=== PATIENT | female | born 1945 | race Caucasian/White ===

== ENCOUNTER → 2016-07-11 | Outpatient (CLI) | payer OTHER ==
[~2016-07-11] MED LIST: ASPI81TA28 PO; DENO60SO SQ; ESCI10TA17 PO; ESTR10TA VAGRING; EZET10TA47 PO; FLUT0.0529 INH; LEVO50TA6 PO; LORA1TAB13 PO; MULT-506 PO; SIMV-150 PO
[2016-07-11 12:33] LABS: ALT/SGPT 24 U/L (12-78); AST/SGOT 16 U/L (15-37); BLOOD UREA NITROGEN 25 mg/dl (7-18); BUN/CREATININE RATIO 29.9 (10-20); CALCIUM 9.2 mg/dl (8.5-10.1); CARBON DIOXIDE 28 mmol/L (21-32); CHLORIDE 108 mmol/L (98-107); CREATININE 0.83 mg/dl (0.60-1.20); GLUCOSE 93 mg/dl (70-99); SODIUM 144 mmol/L (136-145)
[2016-07-11 12:47] LABS: ALB/GLOB RATIO 1.2 (0.9-2); ALKALINE PHOSPHATASE 34 U/L (45-117); CHOLESTEROL 213 mg/dl (0-200); CHOLESTEROL/HDL RATIO 3.1; HDL CHOLESTEROL 68 mg/dl; LDL CHOLESTEROL CALCULATED 125 mg/dl; TRIGLYCERIDES 99 mg/dl (0-150); VERY LOW DENSITY LIPOPROT CALC 20 mg/dl
== END | disposition home or self-care (01) ==
LOC: C.LABPVFM 07:35
PROVIDERS: ATTEND Family Medicine
DX: E78.00 Pure hypercholesterolemia, unspecified (principal); E03.9 Hypothyroidism, unspecified; Z51.81 Encounter for therapeutic drug level monitoring; Z79.899 Other long term (current) drug therapy; Z11.59 Encounter for screening for other viral diseases

== ENCOUNTER → 2016-08-25 | Outpatient (CLI) | payer OTHER ==
[2016-08-25 13:16] LABS: CREATININE 0.89 mg/dl (0.60-1.20)
[2016-08-26 17:05] LABS: ALBUMIN 4.2 G/DL (3.8-4.8); GAMMA GLOBULIN 0.7 G/DL (0.8-1.7); TOTAL PROTEIN 6.6 G/DL (6.2-8.3)
== END | disposition home or self-care (01) ==
LOC: C.LABPVFM 07:52
PROVIDERS: ATTEND Family Medicine
DX: M81.0 Age-related osteoporosis without current pathological fracture (principal); E61.8 Deficiency of other specified nutrient elements; E55.9 Vitamin D deficiency, unspecified

== ENCOUNTER → 2016-09-02 | Outpatient (CLI) | payer OTHER | END | disposition home or self-care (01) | LOC: C.LABPVFM 14:06 | PROVIDERS: ATTEND Internal Medicine Rheumatology | DX: M81.0 Age-related osteoporosis without current pathological fracture (principal); E61.8 Deficiency of other specified nutrient elements; E55.9 Vitamin D deficiency, unspecified ==

== ENCOUNTER → 2016-09-08 | Outpatient (CLI) | payer OTHER ==
--- NOTE | 2016-09-08 13:18 | MAMMOGRAPHY REPORT ---
BILATERAL DIGITAL SCREENING MAMMOGRAM WITH CAD: 09/08/2016 CLINICAL HISTORY: Routine screening. Patient has no complaints. TECHNIQUE: Bilateral CC and MLO views were obtained. Current study was also evaluated with a Comput er Aided Detection (CAD) system. COMPARISON: Comparison is made to exams dated: 09/05/2015 mammogram, 08/30/2014 mammogram, 08/29/2013 mammogram, 03/03/2013 mammogram, 09/01/2012 ultrasound, and 09/01/2012 mammogram - [facility]. BREAST COMPOSITION: There are scattered areas of fibroglandular density in both breasts. FINDINGS: There is stable nodular asymmetry in the medial right breast. No new suspicious mass, arc hitectural distortion or cluster of microcalcifications is seen. IMPRESSION: ACR BI-RADS CATEGORY 1: NEGATIVE There is no mammographic evidence of malignancy. A 1 year screening mammogram is recommended. The p atient will receive written notification of the results. Approximately 10% of breast cancers are not detected with mammography. A negative mammographic repor t should not delay biopsy if a clinically suggestive mass is present. Meliza Hankins M.D. ay/:09/08/2016 12:46:27 [employer] Math Teacher: Dolores DUNAWAY)([place]), [facility] letter sent: Normal 1/2 BI-RADS Code: ACR BI-RADS Category 1: Negative
== END | disposition home or self-care (01) ==
LOC: C.MAMM 08:38
PROVIDERS: ATTEND Obstetrics & Gynecology
DX: Z12.31 Encounter for screening mammogram for malignant neoplasm of breast (principal)

== ENCOUNTER → 2016-10-16 | Outpatient (CLI) | payer OTHER | END | disposition home or self-care (01) | LOC: C.MAMM 08:09 | PROVIDERS: ATTEND Internal Medicine Rheumatology | DX: M81.0 Age-related osteoporosis without current pathological fracture (principal); E61.8 Deficiency of other specified nutrient elements; E55.9 Vitamin D deficiency, unspecified ==

== ENCOUNTER → 2016-12-10 | Outpatient (CLI) | payer OTHER | END | disposition home or self-care (01) | LOC: C.PAPS 10:58 | PROVIDERS: ATTEND Obstetrics & Gynecology | DX: Z12.4 Encounter for screening for malignant neoplasm of cervix (principal) ==

== ENCOUNTER → 2017-01-16 | Outpatient (CLI) | payer OTHER ==
[2017-01-16 13:02] LABS: ALT/SGPT 25 U/L (12-78); BLOOD UREA NITROGEN 20 mg/dl (7-18); BUN/CREATININE RATIO 23.3 (10-20); CALCIUM 9.4 mg/dl (8.5-10.1); CARBON DIOXIDE 29 mmol/L (21-32); CHLORIDE 106 mmol/L (98-107); CHOLESTEROL 209 mg/dl (0-200); CREATININE 0.86 mg/dl (0.60-1.20); GLUCOSE 87 mg/dl (70-99); POTASSIUM 3.9 mmol/L (3.5-5.1); SODIUM 141 mmol/L (136-145); TRIGLYCERIDES 77 mg/dl (0-150); VERY LOW DENSITY LIPOPROT CALC 15 mg/dl
[2017-01-16 13:12] LABS: ALB/GLOB RATIO 1.2 (0.9-2); ALKALINE PHOSPHATASE 36 U/L (45-117); AST/SGOT 22 U/L (15-37); CHOLESTEROL/HDL RATIO 2.8; HDL CHOLESTEROL 76 mg/dl; LDL CHOLESTEROL CALCULATED 118 mg/dl; THYROID STIMULATING HORMONE 0.935 uIu/ml (0.300-4.500)
== END | disposition home or self-care (01) ==
LOC: C.LABPVFM 07:37
PROVIDERS: ATTEND Family Medicine
DX: E78.00 Pure hypercholesterolemia, unspecified (principal); M81.0 Age-related osteoporosis without current pathological fracture; E03.9 Hypothyroidism, unspecified

== ENCOUNTER → 2017-04-13 | Outpatient (CLI) | payer OTHER | END | disposition home or self-care (01) | LOC: C.LABPVFM 07:47 | PROVIDERS: ATTEND Internal Medicine Rheumatology | DX: M81.0 Age-related osteoporosis without current pathological fracture (principal); E55.9 Vitamin D deficiency, unspecified ==

== ENCOUNTER → 2017-07-22 | Outpatient (CLI) | payer OTHER ==
[2017-07-22 13:20] LABS: ALBUMIN 3.9 gm/dl (3.4-5.0); ALT/SGPT 29 U/L (12-78); BLOOD UREA NITROGEN 28 mg/dl (7-18); CALCIUM 9.6 mg/dl (8.5-10.1); CARBON DIOXIDE 28 mmol/L (21-32); CHOLESTEROL 226 mg/dl (0-200); CREATININE 0.84 mg/dl (0.60-1.20); GLUCOSE 104 mg/dl (70-99); POTASSIUM 3.9 mmol/L (3.5-5.1); SODIUM 139 mmol/L (136-145)
[2017-07-22 13:30] LABS: ALKALINE PHOSPHATASE 35 U/L (45-117); AST/SGOT 21 U/L (15-37); LDL CHOLESTEROL CALCULATED 143 mg/dl; TOTAL PROTEIN 7.3 gm/dl (6.4-8.2)
== END | disposition home or self-care (01) ==
LOC: C.LABPVFM 07:25
PROVIDERS: ATTEND Family Medicine
DX: E78.00 Pure hypercholesterolemia, unspecified (principal); F41.9 Anxiety disorder, unspecified; E03.9 Hypothyroidism, unspecified

== ENCOUNTER → 2017-09-11 | Outpatient (CLI) | payer OTHER ==
--- NOTE | 2017-09-14 07:47 | MAMMOGRAPHY REPORT ---
BILATERAL DIGITAL SCREENING MAMMOGRAM TOMOSYNTHESIS WITH CAD: 09/11/2017 CLINICAL HISTORY: Routine screening. Patient has no complaints. TECHNIQUE: Breast tomosynthesis in addition to standard 2D mammography was performed. Current study was also evaluated with a Computer Aided Detection (CAD) system. COMPARISON: Comparison is made to exams dated: 09/08/2016 mammogram, 09/05/2015 mammogram, 08/30/2014 m ammogram, 08/29/2013 mammogram, 08/26/2012 mammogram, and 08/26/2011 mammogram - [facility]. BREAST COMPOSITION: There are scattered areas of fibroglandular density in both breasts. FINDINGS: No suspicious masses, calcifications, or areas of architectural distortion are noted in ei ther breast. There has been no significant interval change compared to prior exams. IMPRESSION: ACR BI-RADS CATEGORY 1: NEGATIVE There is no mammographic evidence of malignancy. A 1 year screening mammogram is recommended. The pa tient will receive written notification of the results. Approximately 10% of breast cancers are not detected with mammography. A negative mammographic report should not delay biopsy if a clinically suggestive mass is present. Lori Malone M.D. ah/:09/11/2017 09:44:45 [employer] Supervisor: Raysa HERNÁNDEZ(Melissa)(M), [facility] letter sent: Normal 1/2 BI-RADS Code: ACR BI-RADS Category 1: Negative
== END | disposition home or self-care (01) ==
LOC: C.MAMM 08:39
PROVIDERS: ATTEND Obstetrics & Gynecology
DX: Z12.31 Encounter for screening mammogram for malignant neoplasm of breast (principal)

== ENCOUNTER → 2017-10-09 | Day surgery (SDC) | payer OTHER ==
[2017-09-18 13:47] VITALS: Ht 152.4 cm; Wt 58.2 kg
[~2017-10-09] VITALS: Ht 152.4 cm; Wt 58.2 kg
[~2017-10-09] MED LIST changes: +CLOB-77 TOP; +DOCU100T7 PO; -FLUT0.0529 INH; +FLUT50SP45 NAE; +LIDOCAINE HCL 2% 2 ML VIAL (20MG/ML) ONE; -LORA1TAB13 PO; +PROPOFOL IV EMULSION 10 MG/ML 20 ML VIAL ONE; -SIMV-150 PO; +SODIUM CHLORIDE 0.9% 500ML 500 ML IV ONE; +ZCR40 PO; +ZYR10 PO
--- NOTE | 2017-10-09 10:20 | Endo History and Physical ---
History & Physical Date of Service: October 09, 2017. Chief Complaint: Screening Referring Physician: Lyndsey Faye History of Present Illness 71 yo CF who presents for screening colonoscopy. Past Surgical History Hx Cardiac Surgery: No Hx Internal Defibrillator: No Hx Pacemaker: No Hx Abdominal Surgery: Yes (TUBAL, UTERINE FIBROID REMOVED) Hx of Implantable Prosthesis: No Hx Post-Op Nausea and Vomiting: No Hx Cancer Surgery: No Hx Thoracic Surgery: No Hx Orthopedic: No Hx Urinary Tract Surgery: No Social History Smoking Status: Never Smoker Hx Substance Use: No Hx Alcohol Use: No Allergies Coded Allergies: Penicillins (Verified Allergy, Unknown, SLIGHT RASH, 10/09/17) Current Medications Reported Home Medications Medications Dose Route/Sig Max Daily Dose Days Date Category Dose Instructions Stool Softener (Docusate Sodium) 100 Mg Tab 1 Tab PO HS 09/18/17 Reported Allergy Nasal [place] 24 Ho (Fluticasone Propionate (Nasal)) 50 Mcg/Act Spr 1-2 Sprays MARY ANN DAILY 09/18/17 Reported Temovate (Clobetasol Propionate) 0.05 % Cre 1 Appln TOP 3XWK 14 09/18/17 Reported All Day Allergy (Cetirizine HCl) 10 Mg Tab 1 Tab PO HS 09/18/17 Reported Simvastatin 40 Mg Tab 1 Tab PO QDD 09/18/17 Reported Prolia (Denosumab) 60 Mg/Ml Breonna 1 Ml SQ EVERY 6 MONTH 06/19/14 Reported EVERY OCTOBER/APR Vagifem (Estradiol Vaginal) 10 Mcg Tab 1 Appl VAGRING WK 06/19/14 Reported ON THURSDAY Zetia (Ezetimibe) 10 Mg Tab 10 Mg PO DINNER 06/19/14 Reported Multivitamin (Multivitamins) Tab 1 Tab PO QAM 06/19/14 Reported Levothyroxine Sodium 50 Mcg Tab 50 Mcg PO HS 06/19/14 Reported Lexapro (Escitalopram Oxalate) 10 Mg Tab 10 Mg PO QAM 06/19/14 Reported Aspirin Ec (Aspirin) 81 Mg Tab 81 Mg PO DINER 06/19/14 Reported Vital Signs Weight (Kilograms): 58.18 Height (Feet): 5 Height (Inches): 0 Date Time Temp Pulse Resp B/P (MAP) Pulse Ox O2 Delivery O2 Flow Rate FiO2 10/09/17 09:52 36.5 83 18 115/77 (90) 97 Room Air Physical Exam General Appearance: WD/WN, no apparent distress Respiratory/Chest: Auscultation: breath sounds normal Cardiovascular: Heart Auscultation: RRR Abdomen: Bowel Sounds: normal Inspection & Palpation: soft, non-distended, no tenderness, guarding & rebound Assessment and Plan Assessment: 71 yo CF who presents for screening colonoscopy. Plan: Proceed with colonoscopy.
--- NOTE | 2017-10-09 10:45 | GI REPORT ---
Patient Name: Erica Rene Procedure Date: 10/09/2017 10:25 AM Date of : 1945 Admit Type: Outpatient Age: 71 Gender: Female Attending MD: Edwin Combs DO Procedure: Colonoscopy Providers: Edwin Combs DO Referring MD: Lyndsey Faye Indications: Screening for colorectal malignant neoplasm Medicines: Monitored Anesthesia Care Complications: No immediate complications. Estimated Blood Loss: Estimated blood loss: none. Procedure: Pre-Anesthesia Assessment: - Prior to the procedure, a History and Physical was performed, and patient medications and allergies were reviewed. The patient's tolerance of previous anesthesia was also reviewed. The risks and benefits of the procedure and the sedation options and risks were discussed with the patient. All questions were answered, and informed consent was obtained. Prior Anticoagulants: The patient has taken no previous anticoagulant or antiplatelet agents. ASA Grade Assessment: II - A patient with mild systemic disease. After reviewing the risks and benefits, the patient was deemed in satisfactory condition to undergo the procedure. After I obtained informed consent, the scope was passed under direct vision. Throughout the procedure, the patient's blood pressure, pulse, and oxygen saturations were monitored continuously. The Scope was introduced through the anus and advanced to the terminal ileum. The colonoscopy was performed without difficulty. The patient tolerated the procedure well. The quality of the bowel preparation was good. The terminal ileum, ileocecal valve, appendiceal orifice, and rectum were photographed. Findings: The perianal and digital rectal examinations were normal. Non-bleeding internal hemorrhoids were found during retroflexion. The hemorrhoids were small. Impression: - Non-bleeding internal hemorrhoids. - No specimens collected. Recommendation: - Resume previous diet. - Continue present medications. - Repeat colonoscopy in 10 months for surveillance. - Return to primary care physician as previously scheduled. Edwin Combs DO 10/09/2017 10:44:52 AM This report has been signed electronically. Note Initiated On: 10/09/2017 10:25 AM Number of Addenda: 0 I attest to the content of the Intraoperative Record and orders documented therein, exceptions below {[id number]}
--- NOTE | 2017-10-09 10:46 | Discharge Instructions ---
Endoscopy Patient Instructions Date / Procedure(s) Performed October 09, 2017. Colonoscopy Allergy Information Coded Allergies: Penicillins (Verified Allergy, Unknown, SLIGHT RASH, 10/09/17) Discharge Date / Findings October 09, 2017. Internal hemorrhoids Medication Instructions Stopped Medication(s): 81mg Aspirin last taken on 10/08/17 OK to resume all medications today as prescribed Reported Home Medications Medications Dose Route/Sig Max Daily Dose Days Date Category Dose Instructions Stool Softener (Docusate Sodium) 100 Mg Tab 1 Tab PO HS 09/18/17 Reported Allergy Nasal [place] 24 Ho (Fluticasone Propionate (Nasal)) 50 Mcg/Act Spr 1-2 Sprays MARY ANN DAILY 09/18/17 Reported Temovate (Clobetasol Propionate) 0.05 % Cre 1 Appln TOP 3XWK 14 09/18/17 Reported All Day Allergy (Cetirizine HCl) 10 Mg Tab 1 Tab PO HS 09/18/17 Reported Simvastatin 40 Mg Tab 1 Tab PO QDD 09/18/17 Reported Prolia (Denosumab) 60 Mg/Ml Breonna 1 Ml SQ EVERY 6 MONTH 06/19/14 Reported EVERY OCTOBER/APR Vagifem (Estradiol Vaginal) 10 Mcg Tab 1 Appl VAGRING WK 06/19/14 Reported ON THURSDAY Zetia (Ezetimibe) 10 Mg Tab 10 Mg PO DINNER 06/19/14 Reported Multivitamin (Multivitamins) Tab 1 Tab PO QAM 06/19/14 Reported Levothyroxine Sodium 50 Mcg Tab 50 Mcg PO HS 06/19/14 Reported Lexapro (Escitalopram Oxalate) 10 Mg Tab 10 Mg PO QAM 06/19/14 Reported Aspirin Ec (Aspirin) 81 Mg Tab 81 Mg PO DINER 06/19/14 Reported Provider Instructions Activity Restrictions - No exercising or heavy lifting for 24 hours. - Do not drink alcohol the day of the procedure. - Do not drive a car or operate machinery until the day after the procedure. - Do not make any important decisions or sign important papers in 24 hours after the procedure. Following Day: - Return to full activity which may include returning to work/school. Diet Start your diet with liquids and light foods (jello, soup, juice, toast). Then eat your usual diet if not nauseated. Treatment For Common After Affects For mild abdominal pain, bloating, or excessive gas: - Rest - Eat lightly - Lie on right side Follow-Up Information Follow-up with Lyndsey Faye as scheduled Anesthesia Information What You Should Know You have had a procedure that required some medicine to reduce anxiety and discomfort. This treatment is called moderate sedation. After receiving the treatment, you may be sleepy, but you will be able to breathe on your own. The effects of the treatment may last for several hours. Follow these instructions along with Activity/Diet recommendations noted above: * Do NOT do anything where dizziness or clumsiness would be dangerous. * Rest quietly at home today, then you can be up and about tomorrow. * Have a responsible person stay with you the rest of today. * You may have had an I.V. today. If so, you may take the dressing off later today. Recommendations Call your doctor if: * Trouble breathing * Continuous vomiting for more than 24 hours * Temperature above 101 degrees * Severe abdominal pain or bloating * Pain not relieved by pain medicine ordered * There is increased drainage or redness from any incision * A large amount of rectal bleeding greater than 2-3 tablespoons. (If you had a polyp/s removed or have hemorrhoids, a small amount of blood - from the rectum is to be expected.) * You have any unanswered questions or concerns. IN THE EVENT OF A SERIOUS EMERGENCY, GO TO THE NEAREST EMERGENCY ROOM Your discharge instructions were prepared by provider Edwin Combs. Patient Instructions Signature Page Erica Rene Patient (or Guardian) Signature/Date: I have read and understand the instructions given to me by my caregivers. Caregiver/RN/Doctor Signature/Date: The above-named patient and/or guardian has received patient instructions on this date. + Original Patient Signature Page (only) stays with chart. Please make copy for patient.
[2017-10-09 11:22] VITALS: BP 118/65; PULSE 59; O2SAT 98
--- NOTE | 2017-10-09 11:41 | Anesthesiology Progress Note ---
Anesthesia Post Op Note Date & Time October 09, 2017 at 11:41 Vital Signs Pain Intensity: 0 Vital Signs Past 12 Hours Date Time Temp Pulse Resp B/P (MAP) Pulse Ox O2 Delivery O2 Flow Rate FiO2 10/09/17 11:22 59 20 118/65 (82) 98 Room Air 10/09/17 11:08 92/66 (75) 10/09/17 11:00 67 20 90/53 (65) 98 Room Air 10/09/17 10:45 69 16 83/45 (58) 96 Room Air 10/09/17 09:52 36.5 83 18 115/77 (90) 97 Room Air Notes Mental Status: alert / awake / arousable, participated in evaluation Pt Amnestic to Procedure: Yes Nausea / Vomiting: adequately controlled Pain: adequately controlled Airway Patency, RR, SpO2: stable & adequate BP & HR: stable & adequate Hydration State: stable & adequate Anesthetic Complications: no major complications apparent
== END | disposition home or self-care (01) ==
LOC: C.GI 09:32
PROVIDERS: ATTEND Internal Medicine
DX: Z12.11 Encounter for screening for malignant neoplasm of colon (principal); K64.8 Other hemorrhoids; Z88.0 Allergy status to penicillin; Z79.82 Long term (current) use of aspirin